=== PATIENT | female | born 1995 | race Hispanic/Latino ===

== ENCOUNTER 2017-09-25 11:02 | Emergency (ER) | payer OTHER ==
[2017-09-25] MEDS ORDERED: Metoclopramide HCl 10 MG/2 ML VIAL ONE (12:09)
[2017-09-25] MEDS ORDERED: Acetaminophen 500 MG TAB ONE (12:09)
[2017-09-25] MEDS ORDERED: Metoclopramide HCl 10 MG TAB PO SCH (12:30)
[2017-09-25] MEDS ORDERED: diphenhydrAMINE 50 MG/ML VIAL ONE (14:32)
== END 2017-09-25 17:05 | disposition home or self-care (01) ==
LOC: ERS 11:02
DX: O99.89 Other specified diseases and conditions complicating pregnancy, childbirth and the puerperium (principal); R51 Headache; Z3A.17 17 weeks gestation of pregnancy
CPT/HCPCS: 96361; 96374; J1200; J2765

== ENCOUNTER 2018-03-07 22:40 | Inpatient (IN) | payer OTHER ==
[2018-03-07] MEDS ORDERED: Lactated Ringer's 1,000 ML IV SCH ×2 (23:45)
[2018-03-07] MEDS ORDERED: hydrOXYzine 25 MG TAB PO SCH (23:45)
[2018-03-07 23:57] LABS: #Basophils 0.1 thou/uL (0.0-0.2); #Eosinphils 0.2 thou/uL (0.0-0.7); #Lymphocytes 2.5 thou/uL (1.20-3.40); #Monocytes 0.8 thou/uL (0.11-0.59); #Neutrophils 8.4 thou/uL (1.40-6.50); %Basophils 0.7 % (0.0-1.0); %Eosinophils 1.7 % (0.0-10.0); %Lymphocytes 20.6 % (28.0-48.0); %Monocytes 6.6 % (0.0-4.0); %Neutrophils 70.4 % (31.0-61.0); Hemoglobin 10.5 g/dL (12.0-16.0); Mean Corpuscular HGB CONC 35.3 g/dL (32.0-36.0); Mean Corpuscular Hemoglobin 28.3 pg (25.0-35.0); Mean Corpuscular Volume 80.1 fL (78.0-98.0); Mean Platelet Volume 9.2 fL (7.4-10.4); Platelet Count 203 thou/uL (130-400); RBC Distribution Width 14.4 % (11.5-14.5)
--- NOTE | 2018-03-08 00:08 | PDOC.LDHP ---
Labor and Delivery H&P Chief complaint: abdominal pain HPI: pt presents to LD after a few hours of constant abdominal pain. Denies any LOF, bleeding, CP, NOVAK, visual changes, or SOB. Her pain has mostly resolved now. + FM. Current gestational age (weeks): 40 Due date: 03/07/18 Dating criteria: last menstrual period, first trimester ultrasound Grav: 1 Para: 0 Current complications: none Abnormal US findings: No Current medications: pre-jovany vitamins Previous surgical history: none Social history: none - Physical Exam Vital signs reviewed and normal: yes General: NAD Heart: RRR Lungs: CTAB Abdomen: gravid Extremeties: no edema FHT: category 1 (baseline 150, accelsx1, moderate variability, no decels) [place] contractions every: none - OB Labs Blood type: B RH: positive Antibody Screen: negative HIV: negative RPR: negative HEPSAg: negative GBS: negative Rubella: immune - Assessment L&D Assessment: medically indicated induction Pain has resolved, during evaluation she continues to have blood pressures above goal. baby is tachycardic with pulse consistently over 150. 1. PIH 2. at term - Plan Plan: admit to L&D (begin IOL when appropriately staffed) -: Continuous monitoring and blood pressure checks, begin IOL when appropriately staffed. <Jayson Koroma - Last Filed: 03/08/18 02:31> <Shikha Ellison - Last Filed: 03/08/18 12:58> Allergies/Adverse Reactions: Allergies Allergy/AdvReac Type Severity Reaction Status Date / Time No Known Allergies Allergy Verified 03/08/18 03:22 Attending Addendum - Attending Addendum Date/Time: 03/08/18 1251 I personally evaluated the patient and discussed the management with Dr. Koroma I agree with the History, Examination, Assessment and Plan documented above with any addition or exceptions noted below. 22 yo G1 at 40w1d presenting for abdominal pain, found to have persistent mild range blood pressures and tachycardia. No severe range BP. Denies NOVAK, vision changes or RUQ pain. Preeclampsia labs WNL including protein: creatinine ratio of 0.19 1. tachycardia -Improved with 2L LR bolus 2. gestational HTN -Term . Risks of continuation of outweigh benefit in setting of gHTN at term. Will proceed with medically indicated IOL at this time -monitor for signs of evolving preeclampsia 3. Medical Induction of labor -Allen score of 5 -Will start induction with cytotec -Cephalic by sutures 4. GBS positive -PCN prophylaxis Anticipate <Shikha Ellison - Last Filed: 03/08/18 12:58>
[2018-03-08 00:15] LABS: Bilirubin Negative (Negative); Blood, Urine Negative (Negative); Clarity CLEAR (Clear); Glucose, Urine (Dipstick) Negative (Negative); Leukocyte Negative (Negative); Nitrite Negative (Negative); Protein, Urine (Dipstick) Negative (Neg-Trace); Specific Gravity, Urine 1.012 (1.002-1.036); Urobilinogen 0.2 mg/dL (0.2-1.0)
[2018-03-08 00:19] LABS: ALT (SGPT) 11 U/L (8-55); AST (SGOT) 20 U/L (5-34); Albumin 3.1 g/dL (3.5-5.0); Alkaline Phosphatase 238 U/L (40-150); Anion Gap 15 mmol/L (10-20); BUN (Urea Nitrogen) 10 mg/dL (7.0-18.7); Bilirubin, Total 0.3 mg/dL (0.2-1.2); Calc. Creatinine Clearance 0 mL/min (70-130); Calcium 8.6 mg/dL (7.8-10.44); Carbon Dioxide 19 mmol/L (22-29); Chloride 110 mmol/L (98-107); Estimated GFR-MDRD Greater than 90; Globulin 3.1 g/dL (2.4-3.5); Glucose 76 mg/dL (70-105); Potassium 3.9 mmol/L (3.5-5.1); Protein, Total 6.2 g/dL (6.0-8.3); Sodium 140 mmol/L (136-145)
[2018-03-08 00:53] VITALS: BMI 39.9
[2018-03-08] MEDS ORDERED: Acetaminophen 500 MG TAB PO PRN (03:24)
[2018-03-08] MEDS ORDERED: Carboprost 250 MCG/ML AMP IM PRN (03:24)
[2018-03-08] MEDS ORDERED: Diphenoxylate HCl/Atropine Tablet PO PRN (03:24)
[2018-03-08] MEDS ORDERED: Misoprostol 100 MCG TAB VAG SCH (03:24)
[2018-03-08] MEDS ORDERED: NS / Oxytocin 40 units/1000ml 1,000 ML IV PRN (03:24)
[2018-03-08] MEDS ORDERED: Promethazine HCl 25 MG/ML VIAL IM PRN (03:24)
[2018-03-08] MEDS ORDERED: NS w/ Oxytocin 10 units 500 ML IV SCH (03:24)
[2018-03-08] MEDS ORDERED: Methylergonovine 0.2 MG/ML VIAL IM PRN (03:24)
[2018-03-08] MEDS ORDERED: Lidocaine 1% (PF) 30 ML VIAL SC PRN (03:24)
[2018-03-08] MEDS ORDERED: Ondansetron HCl/PF 4 MG/2 ML Vial IVP PRN (03:24)
[2018-03-08] MEDS ORDERED: Penicillin G Potassium 5 MILL.UNITS in Sodium Chloride 0.9% 100 ML IVPB SCH (04:00)
[2018-03-08] MEDS: Misoprostol 100 MCG TAB VAG SCH ×5 (05:35→17:32)
[2018-03-08 08:58] LABS: Hemoglobin 10.4 g/dL (12.0-16.0); Mean Corpuscular HGB CONC 34.5 g/dL (32.0-36.0); Mean Corpuscular Hemoglobin 27.8 pg (25.0-35.0); Mean Corpuscular Volume 80.5 fL (78.0-98.0); Mean Platelet Volume 9.1 fL (7.4-10.4); Platelet Count 194 thou/uL (130-400); RBC Distribution Width 14.5 % (11.5-14.5); Red Blood Cell (RBC) Count 3.74 mill/uL (4.00-5.20); White Blood Cell (WBC) Count 11.1 thou/uL (4.8-10.8)
[2018-03-08 09:02] LABS: Syphilis Antibody Nonreactive (Nonreactive); Syphilis Antibody Index 0.04 S/CO (<1.00 Non-Reactive)
[2018-03-08 09:03] LABS: HBSAg Index 0.22 S/CO (0-0.99); Hep B Surf Ag Non-Reactive S/CO (NonReactive)
--- NOTE | 2018-03-08 09:26 | PDOC.LDPN ---
Labor & Delivery Progress Note - Subjective Subjective: comfortable - Objective Abnormal vital signs: BP 151/90, averaging in 140's SBP General: NAD, resting Uterine fundus: non tender SVE: 9:35 AM Dilation: 3 Effacement: 50% Station: -2 FHT: category 1, acceleration absent, variability present [place] contractions every: none Procedures: Cytotec placed at 9:35 AM (2nd dose) - Assessment (1) Encounter for induction of labor Code(s): Z34.90 - ENCNTR FOR SUPRVSN OF NORMAL , UNSP, UNSP TRIMESTER Current Visit: Yes Status: Acute (2) PIH ( induced hypertension) Code(s): O13.9 - GESTATIONAL HTN W/O SIGNIFICANT PROTEINURIA, UNSP TRIMESTER Current Visit: Yes Status: Acute (3) Term Code(s): Z34.80 - ENCOUNTER FOR SUPRVSN OF NORMAL , UNSP TRIMESTER Current Visit: Yes Status: Acute Plan: continue plan of care, labor augmentation -: 22 year old at 40.2 wks presents for induction of labor for PIH 1. Medical induction of labor - Patient presented yesterday night with concerns for labor; she was not found to be in labor, however, patient was noted to have several BP readings >140/90. CBC, CMP, UA, and Urine protein/creatinine wnl. - Patient admitted for induction of labor due to PIH - Cytotec started at 5:45 AM, 2nd dose given at 9:35 AM - Cervical exam at 9:35 3/50/-2, posterior, moderately firm with moreno score of 5 - Category I tracing - Will continue active management of labor 2. PIH - CBC, CMP, Urine protein/creatinine, UA wnl - CBC this AM wnl - Continue to monitor BP; BP this AM ranging from 140's-151 SBP - Labetolol PRN for BP >160/110 - Continue to monitor for s/s of pre-eclampsia; asymptomatic this AM - Consider repeating labs 3. Term IUP - See plan as above
--- NOTE | 2018-03-08 12:44 | PDOC.LDPN ---
Labor & Delivery Progress Note - Subjective Subjective: comfortable - Objective Abnormal vital signs: Persistent mild range BP General: NAD Uterine fundus: non tender Dilation: 3 Effacement: 50% Station: -2 FHT: category 1 [place] contractions every: 1-2 - Assessment (1) Encounter for induction of labor Code(s): Z34.90 - ENCNTR FOR SUPRVSN OF NORMAL , UNSP, UNSP TRIMESTER Current Visit: Yes Status: Acute (2) PIH ( induced hypertension) Code(s): O13.9 - GESTATIONAL HTN W/O SIGNIFICANT PROTEINURIA, UNSP TRIMESTER Current Visit: Yes Status: Acute Qualifiers: Trimester: third trimester Qualified Code(s): O13.3 - Gestational [ -induced] hypertension without significant proteinuria, third trimester (3) Term Code(s): Z34.80 - ENCOUNTER FOR SUPRVSN OF NORMAL , UNSP TRIMESTER Current Visit: Yes Status: Acute Plan: pitocin for augmentation -: 22 year old at 40.1 wks presents for induction of labor for gestational hypertension 1. Medical induction of labor - Patient presented for labor check but was found to have persistent BP readings >140/90. CBC, CMP, UA, and Urine protein/creatinine wnl. - Patient admitted for induction of labor due to gestational HTN. - Cytotec x 2 doses - Cervical exam at 12:35 3/50/-2, soft, anterior with moreno score of 8 - Category I tracing - Pt luiz too frequently for any additional doses of cytotec and moreno is now favorable for pitocin. 2. gHTN - Continue to monitor BP. Have been mild range except for one severe range BP taken when arm was bent. Immediate repeat was 144/92. - Labetolol PRN for BP >160/110 - Continue to monitor for s/s of pre-eclampsia; asymptomatic currently. 3. Term IUP - See plan as above
[2018-03-08] MEDS: Lactated Ringer's 1,000 ML IV SCH (14:05)
[2018-03-08] MEDS: NS w/ Oxytocin 10 units 500 ML IV SCH (14:06)
--- NOTE | 2018-03-08 17:28 | PDOC.LDPN ---
Labor & Delivery Progress Note - Subjective Subjective: painful contractions - Objective General: NAD Dilation: 4 Effacement: 75% Station: -1 FHT: category 1 [place] contractions every: 2 - Assessment (1) Encounter for induction of labor Code(s): Z34.90 - ENCNTR FOR SUPRVSN OF NORMAL , UNSP, UNSP TRIMESTER Current Visit: Yes Status: Acute (2) PIH ( induced hypertension) Code(s): O13.9 - GESTATIONAL HTN W/O SIGNIFICANT PROTEINURIA, UNSP TRIMESTER Current Visit: Yes Status: Acute Qualifiers: Trimester: third trimester Qualified Code(s): O13.3 - Gestational [ -induced] hypertension without significant proteinuria, third trimester (3) Term Code(s): Z34.80 - ENCOUNTER FOR SUPRVSN OF NORMAL , UNSP TRIMESTER Current Visit: Yes Status: Acute -: 1. Medically indicated IOL -Making slow change -Continue pitocin per protocol. Currently at 4 -Cat I FHT -Anticipate 2. Gestational Hypertension -BP has been mostly mild range -She has had 2 severe range BPs but both while having a painful contraction -Will continue to monitor. -If BP is persistently severe range will start magnesium 3. GBS + -PCN ppx
[2018-03-08] MEDS: Penicillin G 2.5 MILL.units 2.5 MILL.UNITS in Premix Bag 1 BAG IVPB SCH ×2 (18:05→22:10)
[2018-03-08] MEDS ORDERED: Calcium Gluc 4.6 MEQ/10 ML (100 MG/ML) SLOW IVP PRN (19:05)
[2018-03-08] MEDS ORDERED: Labetalol HCl 100 MG/20 ML VIAL SLOW IVP PRN (19:06)
[2018-03-08] MEDS ORDERED: Magnesium Sulfate 20 GM/WATER 500 ML BAG IVPB SCH (19:15)
--- NOTE | 2018-03-08 19:31 | PDOC.EVN ---
Event Note - Event Note Event Note: Pt seen and evaluated at bedside in NAD. Family in room. Pt just returned to bed from restroom with no complaints or concerns. Pt states her contractions are becoming more painful but she is breathing through them. She does not want an epidural due to concerns of pain with the procedure. Pt denies NOVAK, change in vision, CP, palpitations, SOB, or RUQ pain. Most recent BP 160/92 with other VSS. RRR, no MMR, CTAB, abd NTTP, DTRs 2+. With continued severe range blood pressures, will initiate magnesium at this time. Load with 4gm now then continue infusion of 2gm/hour. Will also initiate labetalol PRN for BP>160/90. Continue to monitor UOP and pt closely. Expectant management.
[2018-03-08] MEDS: Magnesium Sulfate 20 gm/500 ml 20 GM/500 ML BAG IVPB SCH (20:00)
--- NOTE | 2018-03-08 22:06 | PDOC.LDPN ---
Labor & Delivery Progress Note - Subjective Subjective: comfortable, vaginal pressure - Objective Abnormal vital signs: 144/82, OVSS General: NAD, resting Uterine fundus: non tender Dilation: 5 Effacement: 75% Station: -1 FHT: category 1 (140/mod/ accels) [place] contractions every: 3-4min Resuscitative measures: maternal IV fluids, maternal position change - Assessment (1) Encounter for induction of labor Code(s): Z34.90 - ENCNTR FOR SUPRVSN OF NORMAL , UNSP, UNSP TRIMESTER Current Visit: Yes Status: Acute (2) PIH ( induced hypertension) Code(s): O13.9 - GESTATIONAL HTN W/O SIGNIFICANT PROTEINURIA, UNSP TRIMESTER Current Visit: Yes Status: Acute Qualifiers: Trimester: third trimester Qualified Code(s): O13.3 - Gestational [ -induced] hypertension without significant proteinuria, third trimester (3) Term Code(s): Z34.80 - ENCOUNTER FOR SUPRVSN OF NORMAL , UNSP TRIMESTER Current Visit: Yes Status: Acute Plan: continue plan of care -: 1. IOL, sIUP, term -Continue pitocin per protocol. Currently at 8 -FHT cat 1 -/-1 -Plan for 2. Gestational Hypertension -Mg x1 at 1900 -Presence of DTRs, urine output, good respiratory effort, A&O x4 -BPs have been in 140s, reaching high of 150 SBP, currently at 144/82 -Will continue to monitor -If BP persistently elevated will give Labetalol 3. GBS + -PCN ppx
[2018-03-09] MEDS: Lactated Ringer's 1,000 ML IV SCH (00:39)
[2018-03-09] MEDS: Penicillin G 2.5 MILL.units 2.5 MILL.UNITS in Premix Bag 1 BAG IVPB SCH ×3 (02:15→09:32)
--- NOTE | 2018-03-09 02:29 | PDOC.LDPN ---
Labor & Delivery Progress Note - Subjective Subjective: painful contractions - Objective Vital signs reviewed and normal: yes General: resting, breathing through contractions Uterine fundus: non tender Effacement: 75% Station: -1 FHT: category 1 (135/mod/accels) [place] contractions every: 3-4 min Resuscitative measures: maternal position change - Assessment (1) Encounter for induction of labor Code(s): Z34.90 - ENCNTR FOR SUPRVSN OF NORMAL , UNSP, UNSP TRIMESTER Current Visit: Yes Status: Acute (2) PIH ( induced hypertension) Code(s): O13.9 - GESTATIONAL HTN W/O SIGNIFICANT PROTEINURIA, UNSP TRIMESTER Current Visit: Yes Status: Acute Qualifiers: Trimester: third trimester Qualified Code(s): O13.3 - Gestational [ -induced] hypertension without significant proteinuria, third trimester (3) Term Code(s): Z34.80 - ENCOUNTER FOR SUPRVSN OF NORMAL , UNSP TRIMESTER Current Visit: Yes Status: Acute Plan: continue plan of care -: 1. IOL, sIUP, term -Continue pitocin per protocol. Currently at 20 pit -will recheck in 4 hours -FHT cat 1 -/-1 -Plan for 2. Gestational Hypertension -Mg x1 at 1900 -Presence of DTRs, urine output, good respiratory effort, A&O x4 -BPs have been in 140s -Will continue to monitor -If BP persistently elevated will give Labetalol 3. GBS + -PCN ppx
[2018-03-09] MEDS: Magnesium Sulfate 20 gm/500 ml 20 GM/500 ML BAG IVPB SCH ×2 (03:40→14:43)
--- NOTE | 2018-03-09 06:15 | PDOC.FM ---
- Objective Vital Signs & Weight: Vital Signs (12 hours) Temp Pulse Resp 03/09/18 05:47 100 03/08/18 20:00 98.4 F 71 16 Weight Weight 108.862 kg I&O: 03/07/18 03/08/18 03/09/18 06:59 06:59 06:59 Intake Total 250 Balance 250 Result Diagrams: 03/08/18 08:37 03/07/18 23:20 Dx/Plan (1) Encounter for induction of labor Code(s): Z34.90 - ENCNTR FOR SUPRVSN OF NORMAL , UNSP, UNSP TRIMESTER Status: Acute (2) PIH ( induced hypertension) Code(s): O13.9 - GESTATIONAL HTN W/O SIGNIFICANT PROTEINURIA, UNSP TRIMESTER Status: Acute Qualifiers: Trimester: third trimester Qualified Code(s): O13.3 - Gestational [ -induced] hypertension without significant proteinuria, third trimester (3) Term Code(s): Z34.80 - ENCOUNTER FOR SUPRVSN OF NORMAL , UNSP TRIMESTER Status: Acute
--- NOTE | 2018-03-09 06:18 | PDOC.LDPN ---
Labor & Delivery Progress Note - Subjective Subjective: comfortable, vaginal pressure - Objective Abnormal vital signs: two severe range BPs in low 170s General: NAD, resting Uterine fundus: non tender Effacement: 90% Station: -1 FHT: category 1 (135/mod/accels/no decels) [place] contractions every: 3-4min - Assessment (1) Encounter for induction of labor Code(s): Z34.90 - ENCNTR FOR SUPRVSN OF NORMAL , UNSP, UNSP TRIMESTER Current Visit: Yes Status: Acute (2) PIH ( induced hypertension) Code(s): O13.9 - GESTATIONAL HTN W/O SIGNIFICANT PROTEINURIA, UNSP TRIMESTER Current Visit: Yes Status: Acute Qualifiers: Trimester: third trimester Qualified Code(s): O13.3 - Gestational [ -induced] hypertension without significant proteinuria, third trimester (3) Term Code(s): Z34.80 - ENCOUNTER FOR SUPRVSN OF NORMAL , UNSP TRIMESTER Current Visit: Yes Status: Acute Plan: continue plan of care -: 1. IOL, sIUP, term -Continue pitocin per protocol. Currently at 20 pit -will recheck in 4 hours -FHT cat 1 -/-1 -Plan for 2. Gestational Hypertension -Mg x1 at 1900 -Presence of DTRs, urine output, good respiratory effort, A&O x4 -two severe range BPs in low 170s, given labetalol 10, BPs now steady in 150s -Will continue to monitor 3. GBS + -PCN ppx
[2018-03-09] MEDS ORDERED: NS / Oxytocin 40 units/1000ml 1,000 ML ONE (08:25)
[2018-03-09] MEDS ORDERED: Lidocaine 1% (PF) 30 ML VIAL ONE (08:25)
--- NOTE | 2018-03-09 08:32 | PDOC.LDPN ---
Labor & Delivery Progress Note - Subjective Subjective: painful contractions - Objective Abnormal vital signs: BP with arm bent was 179/100, immediate repeat 144/80s General: NAD, breathing through contractions Uterine fundus: non tender Dilation: 10 Effacement: 100% Station: 1+ FHT: category 1 AROM: clear fluid FSE placed: yes - Assessment (1) Encounter for induction of labor Code(s): Z34.90 - ENCNTR FOR SUPRVSN OF NORMAL , UNSP, UNSP TRIMESTER Current Visit: Yes Status: Acute (2) PIH ( induced hypertension) Code(s): O13.9 - GESTATIONAL HTN W/O SIGNIFICANT PROTEINURIA, UNSP TRIMESTER Current Visit: Yes Status: Acute Qualifiers: Trimester: third trimester Qualified Code(s): O13.3 - Gestational [ -induced] hypertension without significant proteinuria, third trimester (3) Term Code(s): Z34.80 - ENCOUNTER FOR SUPRVSN OF NORMAL , UNSP TRIMESTER Current Visit: Yes Status: Acute -: 22yo G1 at 40w2d in active labor. Now fully dilated. Will start pushing. On magnesium for severe gestational hypertension. Has had 1 dose of IV labetalol. Now mild range except for one with arm bent. Asymptomatic. Cat I FHT Anticipate vaginal delivery
[2018-03-09] MEDS: Misoprostol 200 MCG TAB PR PRN ×2 (09:20→09:30)
[2018-03-09] MEDS: NS w/ Oxytocin 10 units 500 ML IV SCH (09:32)
[2018-03-09] MEDS ORDERED: Adacel (T-DAP) 0.5 ML VIAL IM ONE (09:35)
[2018-03-09] MEDS ORDERED: Lanolin Ointment 7 GM TUBE TOP PRN (09:35)
[2018-03-09] MEDS ORDERED: Calcium Gluconate 4.6 MEQ in Sodium Chloride 0.9% 100 ML IVPB PRN (09:35)
[2018-03-09] MEDS ORDERED: Bisacodyl 10 MG SUPP PR PRN (09:35)
[2018-03-09] MEDS ORDERED: Milk Of Magnesia 30 ML UDCUP PO PRN (09:35)
[2018-03-09] MEDS ORDERED: Benzocaine/Menthol 20-0.5% 60 ML CAN TOP PRN (09:35)
[2018-03-09] MEDS ORDERED: NS / Oxytocin 40 units/1000ml 1,000 ML IV SCH (09:45)
[2018-03-09] MEDS ORDERED: Acetaminophen 500 MG TAB PO PRN (11:18)
--- NOTE | 2018-03-09 15:41 | PDOC.EVN ---
Event Note - Event Note Event Note: 1530 03/09/18 22 yo G1 on P1 on Mag for preE with severe range pressures. No complaints, feeling well. UOP: 100-250 ml/hr BP: down trending. Highest was 155/103, quickly improved to now 133/32. PE: General: Alert and Oriented, NAD. cardiac: RRR, no murmurs Lungs: BCTA Reflexes: 2+ in upper and lower extremities A&P: 22 yo on Mag for PreE with severe range pressures. UOP adequate, blood pressures Stable. Continue Mag and check again in 4 hours. Lucie Paz PGY1
--- NOTE | 2018-03-09 17:58 | PDOC.OPDEL ---
OB Operative/Delivery Note - Additional Findings/Plan Compilations/Other Findings: Delivering Physician: Dr. Ruel Toribio Attending: Dr Shikha Ellison Procedure: Spontaneous Vaginal Delivery Anesthesia: Local for Repair QBL: 1543 ml Pre-op Diagnosis: 1. Term intrauterine in labor 2. Gestational Hypertension 3. GBS positive with adequate treatment Post-op Diagnosis: 1. Term intrauterine , delivered 2. same as above 3. Same as above Indications: A 22y/o female presents with contractions and gestational hypertension Delivery Note: This is 22yo F @ 40.1wks who delivered a viable male infant at 0903. Following an uneventful antepartum course, a vigorous male was delivered over an intact perineum in the right occipitoanterior position. Anterior Shoulder and then remainder of the body delivered. Cord wrapped around body. The head was held down and mouth and nares were bulb suctioned. Cord clamped after time on mother's abdomen and cut and cord blood collected. Placenta delivered intact in the [place] with a 3 vessel cord noted. Fundal massage was performed and the fundus was firm. The cervix and vagina were inspected and a second degree laceration noted and repaired with 3-0 vicryl in the usual fashion with good approximation and hemostasis after a local anesthetic 1% lidocaine without epi was injected at site. There were also 2 periuretheral lacerations that were hemostatic and not repaired Infant went to nursery in good condition for routine care. Apgars were 8/9at 1 & 5 minutes, respectively. Patient tolerated delivery well and went to after routine recovery/care. <Ruel Toribio - Last Filed: 03/09/18 17:55> - Additional Findings/Plan Compilations/Other Findings: I was present for and assisted in the entire vaginal delivery performed by Dr. Toribio. Please see my additions/corrections below: Pre-op diagnosis should be addended to state gestational HTN with severe range blood pressures requiring magnesium Post-op diagnosis should include hemorrhage secondary to retained placenta and uterine atony After delivery of placenta the uterus was initially firm but quickly became atonic and brisk bleeding was noted. Manual exploration of the uterus was performed and retained membranes with removed with improved uterine tone. However, after removal the lower uterine segment again became atonic and brisk bleeding was again noted. Hemabate and cytotec were given and bimanual massage was continued with improved tone. The patient remained on for 24hrs of extended magnesium recovery due to severe gestational hypertension. <Shikha Ellison - Last Filed: 03/10/18 12:04>
[2018-03-10] MEDS: Lactated Ringer's 1,000 ML IV SCH ×4 (00:52→17:19)
[2018-03-10] MEDS: Docusate Calcium (SURFAK) 240 MG CAP PO SCH ×3 (00:56→21:15)
[2018-03-10] MEDS: Magnesium Sulfate 20 gm/500 ml 20 GM/500 ML BAG IVPB SCH (00:56)
--- NOTE | 2018-03-10 01:24 | PDOC.EVN ---
Event Note - Event Note Event Note: Pt resting comfortably. RR at 16, O2 98% on RA. denies feeling SOB. Producing urine, +DTRs elicited. A&O x4. No complaints at this time.
--- NOTE | 2018-03-10 06:03 | PDOC.EVN ---
Event Note - Event Note Event Note: patient resting comfortably. BPs stable. producing urine output. DTRs present. good respiratory effort. no complaints at this time.
[2018-03-10 06:22] LABS: Hemoglobin 6.8 g/dL (12.0-16.0); Mean Corpuscular HGB CONC 33.9 g/dL (32.0-36.0); Mean Corpuscular Hemoglobin 27.5 pg (25.0-35.0); Mean Corpuscular Volume 81.2 fL (78.0-98.0); Mean Platelet Volume 8.3 fL (7.4-10.4); Platelet Count 172 thou/uL (130-400); RBC Distribution Width 14.8 % (11.5-14.5); Red Blood Cell (RBC) Count 2.49 mill/uL (4.00-5.20); White Blood Cell (WBC) Count 17.5 thou/uL (4.8-10.8)
--- NOTE | 2018-03-10 09:53 | PDOC.PP ---
Post Progress Note Post Day #: 1 Subjective: This is a 22 yo [id number] @ 40.1 wks who delivered a TAGA M infant via @ 0903 on 03/09/18. EBL 1543 with 2nd degree perineal alceration with repair and bilateral periurethral lacerations. Her was complicated by preE with severe range pressures, GBS (+), gestational HTN, Rh (-). This morning the patient has no complaints. She is resting comfortably in bed. She denies headache, pain, leg cramps, vision changes, or subjective fever. PO intake tolerated: yes Flatus: yes Ambulation: yes Vital Signs (12 hours) Temp Pulse Resp 03/10/18 08:00 98.7 F 102 H 20 03/10/18 01:30 98.7 F 102 H 20 Weight Weight 108.862 kg - Physical Examination General: NAD Cardiovascular: no m/r/g, RRR Respiratory: clear to auscultation bilaterally, non-labored breathing Abdominal: + bowel sounds Fundus firm & at: level of umbilicus Extremities: negative homans (B) Skin: no rash Neurological: no gross focal deficits Deviation from normal: patellar reflexes +1 Psychiatric: A&Ox3, normal affect Result Diagrams: 03/10/18 05:51 03/07/18 23:20 Additional Labs: Post Labs Blood Type A NEGATIVE 03/08/18 08:38 Hep Bs Antigen Non-Reactive S/CO (NonReactive) 03/07/18 23:20 (1) Term Code(s): Z34.80 - [facility] , UNSP TRIMESTER Status: Acute (2) Preeclampsia Code(s): O14.90 - UNSPECIFIED PRE-ECLAMPSIA, UNSPECIFIED TRIMESTER Status: Acute (3) GBS (group B streptococcus) infection Code(s): A49.1 - STREPTOCOCCAL INFECTION, UNSPECIFIED SITE Status: Acute - Assessment/Plan This is a 22yo F who delivered TAGA male via @ 40.1 weeks EBL 1530. 2nd degree perineal lacerations s/p repair, bilateral periurethral lacerations hemostatic. Term - @ 40.1 wks. EBL 1530. AM Hgb 6.6 - Will type&cross and give 2uPRBCs and follow up with AM H&H on 03/11/16. - Patient remains asymptomatic. No continued blood loss, no dizziness. - Pt is successfully breathing - continue routine post care Pre-eclampsia - completed 24 hours post delivery Mg - last PB 115/58 - Patient asymptomatic GBS + - received adequate prophylaxis with PCN X 5 - will continue to monitor VS DISPO: likely discharge tomorrow. Will continue post care and monitor VS Case discussed with Dr. Ellison <Krys Sanchez - Last Filed: 03/10/18 10:08> Vital Signs (12 hours) Temp Pulse Pulse Resp BP BP 03/10/18 10:30 97.9 F 74 18 105/67 03/10/18 09:35 78 18 126/76 03/10/18 08:35 98.1 F 80 16 105/69 03/10/18 08:00 98.7 F 102 H 20 03/10/18 01:30 98.7 F 102 H 20 Weight Weight 108.862 kg Result Diagrams: 03/10/18 05:51 03/07/18 23:20 Additional Labs: Post Labs Blood Type A NEGATIVE 03/08/18 08:38 Hep Bs Antigen Non-Reactive S/CO (NonReactive) 03/07/18 23:20 (1) Encounter for induction of labor Code(s): Z34.90 - ENCNTR FOR SUPRVSN OF NORMAL , UNSP, UNSP TRIMESTER Status: Acute (2) PIH ( induced hypertension) Code(s): O13.9 - GESTATIONAL HTN W/O SIGNIFICANT PROTEINURIA, UNSP TRIMESTER Status: Acute Qualifiers: Trimester: third trimester Qualified Code(s): O13.3 - Gestational [ -induced] hypertension without significant proteinuria, third trimester (3) Term Code(s): Z34.80 - ENCOUNTER FOR SUPRVSN OF NORMAL , UNSP TRIMESTER Status: Acute <Shikha Ellison - Last Filed: 03/10/18 11:46> Attending Addendum - Attending Addendum Date/Time: 03/10/18 0446 I personally evaluated the patient and discussed the management with Dr. Sanchez I agree with the History, Examination, Assessment and Plan documented above with any addition or exceptions noted below. 22 yo [id number] PPD#1 s/p complicated by hemorrhage and severe gestational hypertension requiring magnesium for seizure prophylaxis. PT doing well this morning. She has ambulated without dizziness. Lochia is minimal. Denies NOVAK, vision changes, ruq pain, SOB or CP. Fundus is firm and at umbilicus. 1. PPD #1 -Meeting appropriate milestones -Continue routine care -anticipate d/c to home on PPD #2 2. Severe gestational HTN -Now s/p 24hrs extended mag recovery -BP all normotensive or mild range -Asymptomatic 3. Acute blood loss anemia in setting of chronic anemia of -2/2 PPH -Hemoglobin 6.8 this morning. Transfuse 2 units PRBCs -Asymptomatic. Continue to monitor closely <Shikha Ellison - Last Filed: 03/10/18 11:46>
[2018-03-10] MEDS: Penicillin G 2.5 MILL.units 2.5 MILL.UNITS in Premix Bag 1 BAG IVPB SCH ×2 (10:12→10:13)
[2018-03-10] MEDS: Ferrous Sulfate 325 MG TAB PO SCH ×3 (10:12→17:49)
[2018-03-10] MEDS: Prenatal Vitamin 1 TAB PO SCH (10:42)
[2018-03-11 05:40] LABS: Hemoglobin 9.5 g/dL (12.0-16.0)
[2018-03-11 08:14] VITALS: BP 128/69; TEMP 98.1
[2018-03-11] MEDS: Prenatal Vitamin 1 TAB PO SCH (08:35)
[2018-03-11] MEDS: Docusate Calcium (SURFAK) 240 MG CAP PO SCH (08:35)
[2018-03-11] MEDS: Ferrous Sulfate 325 MG TAB PO SCH (08:38)
--- NOTE | 2018-03-11 12:42 | PDOC.PP ---
Post Progress Note Post Day #: 2 Subjective: Doing well. Denies pain, difficulty urinating. Lochia is minimal. Ambulating without dizziness. going well. Feels ready for discharge PO intake tolerated: yes Flatus: yes Ambulation: yes Vital Signs (12 hours) Temp Pulse Resp BP Pulse Ox 03/11/18 07:56 98.1 F 68 18 128/69 98 03/11/18 04:50 98.3 F 78 16 130/73 Weight Weight 108.862 kg - Physical Examination General: NAD Abdominal: no distention, appropriately TTP Neurological: no gross focal deficits Psychiatric: A&Ox3, normal affect Result Diagrams: 03/11/18 05:13 03/07/18 23:20 Additional Labs: Post Labs Blood Type A NEGATIVE 03/08/18 08:38 Hep Bs Antigen Non-Reactive S/CO (NonReactive) 03/07/18 23:20 (1) Encounter for induction of labor Code(s): Z34.90 - ENCNTR FOR SUPRVSN OF NORMAL , UNSP, UNSP TRIMESTER Status: Acute (2) PIH ( induced hypertension) Code(s): O13.9 - GESTATIONAL HTN W/O SIGNIFICANT PROTEINURIA, UNSP TRIMESTER Status: Acute Qualifiers: Trimester: third trimester Qualified Code(s): O13.3 - Gestational [ -induced] hypertension without significant proteinuria, third trimester (3) Term Code(s): Z34.80 - ENCOUNTER FOR SUPRVSN OF NORMAL , UNSP TRIMESTER Status: Acute (4) Acute blood loss as cause of postoperative anemia Code(s): D62 - ACUTE POSTHEMORRHAGIC ANEMIA Status: Acute (5) Acute blood loss anemia Code(s): D62 - ACUTE POSTHEMORRHAGIC ANEMIA Status: Acute - Assessment/Plan PPD# 2 -Meeting appropriate milestones -D/C to home today -Routine PP counseling completed -Declines control -Followup in [facility] next week Severe gestational hypertension -BP has been normotensive -Preeclampsia counseling completed Acute blood loss anemia in setting of chronic anemia of -S/P 2 units PRBC -Appropriate rise in H+H -Asymoptomatic -D/C to home on PO iron. RH negative -S/P rhogam
== END 2018-03-11 11:15 | disposition home or self-care (01) | DRG 775 ==
LOC: L&D/OP 22:40 → L&D 03-08 06:08 → 3SW 03-10 08:41
PROVIDERS: ADMIT Family Medicine; ATTEND Family Medicine
PROC: 10E0XZZ Delivery of Products of Conception, External Approach (ICD-10-PCS; principal; 2018-03-09)
PROC: 0KQM0ZZ Repair Perineum Muscle, Open Approach (ICD-10-PCS; 2018-03-09)
DX: O13.4 Gestational [pregnancy-induced] hypertension without significant proteinuria, complicating childbirth (principal); Z37.0 Single live birth; Z3A.40 40 weeks gestation of pregnancy; O48.0 Post-term pregnancy; O99.824 Streptococcus B carrier state complicating childbirth; O70.1 Second degree perineal laceration during delivery
CPT/HCPCS: 36415; 36430; 51702; 80053; 81003; 82570; 83735; 84156; 85014; 85018; 85025; 85027; 85461; 86780; 86850; 86900; 86901; 87340; 90384; 90715; 96372; 99285; A4216; J2001; J2210; J2405; J2540; J3475; J3490; J7050; P9016

== ENCOUNTER 2018-03-18 17:51 | Emergency (ER) | payer OTHER ==
[2018-03-18 18:43] LABS: #Basophils 0.1 thou/uL (0.0-0.2); #Lymphocytes 1.3 thou/uL (1.20-3.40); #Monocytes 1.1 thou/uL (0.11-0.59); #Neutrophils 8.3 thou/uL (1.40-6.50); %Basophils 0.6 % (0.0-1.0); %Eosinophils 0.3 % (0.0-10.0); %Lymphocytes 11.7 % (28.0-48.0); %Neutrophils 77.4 % (31.0-61.0); Hemoglobin 10.3 g/dL (12.0-16.0); Mean Corpuscular HGB CONC 34.2 g/dL (32.0-36.0); Mean Corpuscular Hemoglobin 28.5 pg (25.0-35.0); Mean Corpuscular Volume 83.4 fL (78.0-98.0); Mean Platelet Volume 7.9 fL (7.4-10.4); Platelet Count 293 thou/uL (130-400); Red Blood Cell (RBC) Count 3.62 mill/uL (4.00-5.20); White Blood Cell (WBC) Count 10.7 thou/uL (4.8-10.8)
[2018-03-18] MEDS ORDERED: Acetaminophen 500 MG TAB ONE (19:01)
[2018-03-18 19:05] LABS: ALT (SGPT) 18 U/L (8-55); AST (SGOT) 23 U/L (5-34); Albumin 3.2 g/dL (3.5-5.0); Alkaline Phosphatase 104 U/L (40-150); Anion Gap 9 mmol/L (10-20); BUN (Urea Nitrogen) 7 mg/dL (7.0-18.7); Bilirubin, Total 0.4 mg/dL (0.2-1.2); Calc. Creatinine Clearance 0 mL/min (70-130); Calcium 8.3 mg/dL (7.8-10.44); Carbon Dioxide 24 mmol/L (22-29); Chloride 101 mmol/L (98-107); Estimated GFR-MDRD Greater than 90; Globulin 3.8 g/dL (2.4-3.5); Glucose 109 mg/dL (70-105); Sodium 131 mmol/L (136-145)
[2018-03-18 19:07] LABS: Potassium 2.9 mmol/L (3.5-5.1)
[2018-03-18] MEDS ORDERED: Potassium Chloride 20 MEQ TAB ONE (19:09)
[2018-03-18 19:31] LABS: Bilirubin Negative (Negative); Blood, Urine Moderate (Negative); Clarity CLOUDY (Clear); Glucose, Urine (Dipstick) Negative (Negative); Leukocyte Large (Negative); Nitrite Negative (Negative); Protein, Urine (Dipstick) 100 mg/dL (Neg-Trace); Specific Gravity, Urine 1.009 (1.002-1.036); pH, Urine 6.5 (5.0-9.0)
[2018-03-18 19:34] LABS: Bacteria/HPF 1+ HPF (None Seen); Hyaline Casts/LPF 0-3 HYALINE CAST LPF (0-3 Hyaline); RBC/HPF 0-3 HPF (0-3); Squamous Epithelial None Seen HPF (0-3)
--- NOTE | 2018-03-18 19:43 | RAD ---
SINGLE VIEW OF THE CHEST: 03/18/18 COMPARISON: None. HISTORY: Fever and headache. FINDINGS: Single view of the chest shows a normal sized cardiomediastinal silhouette. There is no evidence of c onsolidation, mass, or pleural effusion. The bones are unremarkable. IMPRESSION: No evidence of acute cardiopulmonary disease. POS: C
[2018-03-18] MEDS ORDERED: cefTRIAXone\\ROCEPHIN 1 GM VIAL ONE (20:15)
== END 2018-03-18 21:33 | disposition home or self-care (01) ==
LOC: ERS 17:51
DX: O86.20 Urinary tract infection following delivery, unspecified (principal)
CPT/HCPCS: 36415; 51701; 71045; 80053; 81003; 81015; 83605; 85025; 87040; 87077; 87086; 87149; 87186; 96361; 96365; A4353; J0696

== ENCOUNTER 2019-04-14 08:36 | Outpatient (CLI) | payer OTHER ==
--- NOTE | 2019-04-14 10:50 | ULT ---
OB ULTRASOUND: Date: 04/14/19 INDICATION: Assess anatomy. FINDINGS: There is a single viable intrauterine . Gestational age by ultrasound is 20 weeks/0 days. BPD: 19 weeks/6 days HC: 19 weeks/6 days AC: 19 weeks/6 days FL: 20 weeks/2 days EFW: 323 gm, 20 weeks/2 days Placenta: Posterior. Presentation: Vertex. Amniotic Fluid: Adequate. LUCINDA recorded at 12.08 cm. Heart Rate: 160 bpm. anatomy identified including intracranial contents, 4 chamber heart, stomach, kidneys, cord ins ertion, bladder, spine, nose/lips, extremities, and 3 vessel cord were all identified. No abnormaliti es seen. IMPRESSION: 20 weeks/0 days gestation by ultrasound measurement. POS: [facility]
== END 2019-04-14 08:37 | disposition home or self-care (01) ==
LOC: BICULT 08:36
PROVIDERS: ATTEND Family Medicine
DX: O09.892 Supervision of other high risk pregnancies, second trimester (principal); Z3A.20 20 weeks gestation of pregnancy
CPT/HCPCS: 76805

== ENCOUNTER 2019-08-05 15:01 | Inpatient (IN) | payer OTHER ==
[~2019-08-05 15:01] MED LIST: Bupivacaine 0.25% HCL 30 ML VIAL ONE
[2019-08-05 15:50] VITALS: BMI 41.8
[2019-08-05 16:23] LABS: Amnisure Internal Control QC ACCEPTABLE (ACCEPTABLE); Amnisure Test RUPTURE DETECTED (No Rupture)
[2019-08-05] MEDS ORDERED: NS w/ Oxytocin 10 units 500 ML IV SCH ×2 (17:01)
[2019-08-05] MEDS ORDERED: Ondansetron PF 4 MG/2 ML Vial IVP PRN (17:01)
[2019-08-05] MEDS ORDERED: Butorphanol Tartrate 1 MG/ML VIAL SLOW IVP PRN (17:01)
[2019-08-05] MEDS ORDERED: hydrALAZINE 20 MG/ML VIAL SLOW IVP PRN (17:01)
[2019-08-05] MEDS ORDERED: Methylergonovine 0.2 MG/ML VIAL IM PRN (17:01)
[2019-08-05] MEDS ORDERED: Carboprost 250 MCG/ML AMP IM PRN (17:01)
[2019-08-05] MEDS ORDERED: Lidocaine 1% (PF) 30 ML VIAL SC PRN (17:01)
[2019-08-05] MEDS ORDERED: NS / Oxytocin 40 units/1000ml 1,000 ML IV PRN (17:01)
[2019-08-05] MEDS ORDERED: Promethazine HCl 25 MG/ML VIAL IM PRN (17:01)
[2019-08-05] MEDS ORDERED: Diphenoxylate HCl/Atropine Tablet PO PRN (17:01)
[2019-08-05] MEDS ORDERED: Ibuprofen 800 MG TAB PO PRN (17:01)
[2019-08-05] MEDS ORDERED: HYDROcodone/Acetaminophen 5/325 mg Tablet PO PRN (17:01)
[2019-08-05] MEDS: Lactated Ringer's 1,000 ML IV SCH (17:13)
[2019-08-05 17:27] LABS: Hemoglobin 11.1 g/dL (12.0-16.0); Mean Corpuscular HGB CONC 33.1 g/dL (32.0-36.0); Mean Corpuscular Hemoglobin 25.1 pg (27.0-31.0); Mean Corpuscular Volume 75.6 fL (78.0-98.0); Mean Platelet Volume 9.2 fL (7.4-10.4); Platelet Count 277 thou/uL (130-400); RBC Distribution Width 14.7 % (11.5-14.5); Red Blood Cell (RBC) Count 4.44 mill/uL (4.20-5.40)
[2019-08-05] MEDS: Ampicillin 2 GM in Sodium Chloride 0.9% 100 ML IVPB SCH (17:57)
[2019-08-05 18:02] LABS: Syphilis Antibody Nonreactive (Nonreactive); Syphilis Antibody Index 0.04 S/CO (<1.00 Non-Reactive)
[2019-08-05 18:03] LABS: HBSAg Index 0.24 S/CO (0-0.99); Hep B Surf Ag Non-Reactive S/CO (NonReactive)
[2019-08-06] MEDS: Ampicillin 2 GM in Sodium Chloride 0.9% 100 ML IVPB SCH (00:32)
[2019-08-06] MEDS: Lactated Ringer's 1,000 ML IV SCH (00:32)
[2019-08-06] MEDS ORDERED: Fentanyl 4 mcg/Bup 0.1% Cadd 100 ML ONE (01:54)
[2019-08-06] MEDS ORDERED: Lidocaine 1% (PF) 30 ML VIAL ONE (02:51)
[2019-08-06] MEDS ORDERED: NS / Oxytocin 40 units/1000ml 1,000 ML ONE ×2 (02:51→05:31)
[2019-08-06] MEDS ORDERED: Methylergonovine 0.2 MG/ML VIAL ONE (02:52)
[2019-08-06] MEDS ORDERED: Carboprost 250 MCG/ML AMP ONE (02:52)
[2019-08-06] MEDS ORDERED: diphenhydrAMINE 50 MG/ML VIAL IVP PRN (03:07)
[2019-08-06] MEDS ORDERED: Promethazine HCl 25 MG/ML VIAL IM PRN ×2 (03:07→05:26)
[2019-08-06] MEDS ORDERED: ePHEDrine/0.9% NaCl/PF SYRINGE 50 mg/10 ml SLOW IVP PRN (03:07)
[2019-08-06] MEDS ORDERED: Ondansetron PF 4 MG/2 ML Vial IVP PRN ×2 (03:07→05:26)
[2019-08-06] MEDS ORDERED: Acetaminophen 325 MG TAB PO PRN (03:07)
[2019-08-06] MEDS ORDERED: Naloxone HCl 0.4 mg/ml Vial IVP PRN ×2 (03:07)
[2019-08-06] MEDS ORDERED: Lactated Ringer's 500 ML IV PRN (03:07)
[2019-08-06] MEDS ORDERED: Fentanyl 4 mcg/Bupivacaine 0.1% Cassette 100 ML EPIDURAL SCH (03:15)
[2019-08-06] MEDS ORDERED: Communication Order-Pharmacy FS SCH (03:15)
[2019-08-06] MEDS ORDERED: HYDROcodone/Acetaminophen 5/325 mg Tablet PO PRN ×2 (05:26)
[2019-08-06] MEDS ORDERED: Milk Of Magnesia 30 ML UDCUP PO PRN (05:26)
[2019-08-06] MEDS ORDERED: Bisacodyl 10 MG SUPP PR PRN (05:26)
[2019-08-06] MEDS ORDERED: Benzocaine-Menthol 82.5 ML CAN TOP PRN (05:26)
[2019-08-06] MEDS ORDERED: hydrALAZINE 20 MG/ML VIAL SLOW IVP PRN (05:26)
[2019-08-06] MEDS ORDERED: NS / Oxytocin 40 units/1000ml 1,000 ML IV SCH (05:26)
[2019-08-06] MEDS ORDERED: Lanolin Ointment 7 GM TUBE TOP PRN (05:26)
[2019-08-06] MEDS ORDERED: diphenhydrAMINE 25 MG CAP PO PRN (05:26)
[2019-08-06] MEDS: Ibuprofen 800 MG TAB PO SCH ×3 (06:42→21:37)
[2019-08-06] MEDS ORDERED: Adacel (T-DAP) 0.5 ML SYRINGE IM ONE (09:00)
[2019-08-06] MEDS: Prenatal Vitamin 1 TAB PO SCH (09:27)
[2019-08-06] MEDS: Docusate Calcium (SURFAK) 240 MG CAP PO SCH ×2 (09:27→21:37)
[2019-08-06] MEDS: Ferrous Sulfate 325 MG TAB PO SCH ×2 (09:28→18:36)
[2019-08-07 05:53] LABS: Hemoglobin 9.9 g/dL (12.0-16.0); Mean Corpuscular HGB CONC 32.9 g/dL (32.0-36.0); Mean Corpuscular Volume 75.9 fL (78.0-98.0); Mean Platelet Volume 9.2 fL (7.4-10.4); Platelet Count 228 thou/uL (130-400); RBC Distribution Width 14.7 % (11.5-14.5); Red Blood Cell (RBC) Count 3.95 mill/uL (4.20-5.40); White Blood Cell (WBC) Count 15.3 thou/uL (4.8-10.8)
[2019-08-07] MEDS: Ibuprofen 800 MG TAB PO SCH ×2 (06:00→13:14)
[2019-08-07 07:45] VITALS: BP 119/71; TEMP 98.2
[2019-08-07] MEDS: Ferrous Sulfate 325 MG TAB PO SCH (08:16)
[2019-08-07] MEDS: Prenatal Vitamin 1 TAB PO SCH (08:16)
[2019-08-07] MEDS: Docusate Calcium (SURFAK) 240 MG CAP PO SCH (08:17)
--- NOTE | 2019-08-10 18:27 | PQF ---
[employer] Guide Crystal Reports Winform Viewer CHASE VILLAGOMEZ ROLAND R MD [id number] CLINICAL DOCUMENTATION CLARIFICATION FORM: POST DISCHARGE Addendum to original discharge summary date: ____ Late entry note date: __ DATE: 08/10/19 ATTN: DR. YANET FOX Please exercise your independent, professional judgment in responding to the clarification form. Clinical indicators are provided on the bottom of this form for your review ___ Final Diagnosis on the Pathology report: acute chorioamnionitis Clarification of Pathology report: Please check appropriate box(s): [ X ] Agree w the pathology finding of:____chorioamnionitis ___ [ ] Other explanation of pathology findings (please specify) [ ] Other diagnosis [ ] Unable to determine For continuity of documentation, please document condition throughout progress notes and discharge summary. Thank You. CLINICAL INDICATORS - SIGNS/ SYMPTOMS / LABS Pathylogy Report- membranes-- acute chorioamnionitis DS pg.1- onset of labor, spontaneous vaginal delivery RISK FACTORS 36weeks- DS rapture of membrane- Delivery summary TREATMENTS IV fluids- MAR (This form is maintained as a part of the permanent medical record) [employer]. All Rights Reserved [email or web address]
== END 2019-08-07 16:00 | disposition home or self-care (01) | DRG 805 ==
LOC: L&D/OP 15:01 → PBC RADSJB 15:01 → L&D 17:05 → 3SW 08-06 05:55
PROVIDERS: ADMIT Family Medicine; ATTEND Family Medicine
PROC: 10E0XZZ Delivery of Products of Conception, External Approach (ICD-10-PCS; principal; 2019-08-06)
PROC: 0UQMXZZ Repair Vulva, External Approach (ICD-10-PCS; 2019-08-06)
DX: O42.913 Preterm premature rupture of membranes, unspecified as to length of time between rupture and onset of labor, third trimester (principal); O41.1230 Chorioamnionitis, third trimester, not applicable or unspecified; Z37.0 Single live birth; O71.82 Other specified trauma to perineum and vulva; Z3A.36 36 weeks gestation of pregnancy
CPT/HCPCS: 36415; 51702; 84112; 85027; 85461; 86780; 86850; 86900; 86901; 87340; 88307; 90384; 96372; 99285; J0290; J2001; J2210; J2405; J2590; J3490; S0020

== ENCOUNTER 2022-08-27 14:02 | Outpatient (CLI) | payer OTHER | END 2022-08-27 14:03 | disposition home or self-care (01) | LOC: BICULT 14:02 | PROVIDERS: ATTEND Nurse Practitioner Women's Health | DX: O09.892 Supervision of other high risk pregnancies, second trimester (principal); Z3A.27 27 weeks gestation of pregnancy | CPT/HCPCS: 76805 ==